=== PATIENT | male | born 1975 | race Caucasian/White ===

== ENCOUNTER 2021-09-05 19:40 | Emergency (ER) | payer MEDICAID ==
[~2021-09-05] VITALS: Ht 167.6 cm; Wt 63.5 kg
--- NOTE | 2021-09-05 20:00 | NUR ---
PT BIBSELF C/O BODY ACHES, CHILLS, "TROUBLE CATCHING BREATH", AND LACK OF APETITE "FOR A FEW DAYS". PT [id number] ATTACHED TO MONITOR AND POX. MD AT BEDSIDE. UPON ASSESSMENT, PT SKIN IS WARM AND DRY, AFEBRILE AT 98.7. PT GIVEN BLANKET AND CALL LIGHT WTIHIN REACH
--- NOTE | 2021-09-05 20:26 | NUR ---
BLOOD AND COVID SWAB SENT TO LAB
[2021-09-05] MEDS ORDERED: IV NS 0.9% 1,000 ML BAG IV ONE ×2 (20:30→21:00)
--- NOTE | 2021-09-05 20:30 | NUR ---
RAD AT BEDSIDE
[2021-09-05 20:41] LABS: BASOPHILS % (AUTO) 0.2 % (0.0-2.0); EOSINOPHILS % (AUTO) 0.1 % (0.0-6.0); HEMATOCRIT 42 % (39-51); HEMOGLOBIN 14.5 g/dL (13.5-17.5); LYMPHOCYTES # (AUTO) 1.5 K/uL (0.8-4.8); LYMPHOCYTES % (AUTO) 20.7 % (20.0-44.0); MEAN CORPUSCULAR HGB CONC 35 g/dl (31.0-36.0); MEAN CORPUSCULAR VOLUME 87 fL (80-96); MONOCYTES # (AUTO) 0.8 K/uL (0.1-1.30); MONOCYTES % (AUTO) 10.9 % (2.0-12.0); NEUTROPHILS # (AUTO) 4.8 K/uL (1.8-8.9); NEUTROPHILS % (AUTO) 68.1 % (43.0-81.0); PLATELET COUNT (AUTO) 157 K/uL (150-450); RED BLOOD CELL COUNT(AUTO) 4.76 MIL/uL (4.5-6.0); WHITE BLOOD COUNT (AUTO) 7.1 K/uL (4.3-11.0)
[2021-09-05 20:56] LABS: ALBUMIN 3.1 g/dL (3.4-5.0); BILIRUBIN,DIRECT 0.1 mg/dL (0.0-0.2); BILIRUBIN,TOTAL 0.3 mg/dL (0.2-1.0); CALCIUM, SERUM 8.4 mg/dL (8.5-10.1); CREATININE 1.1 mg/dL (0.6-1.3); POTASSIUM 3.9 mmol/L (3.5-5.1); TOTAL PROTEIN, SERUM 7.2 g/dL (6.4-8.2)
[2021-09-05] MEDS ORDERED: AZITHROMYCIN 500 MG in IV D5W 250 ML IV ONE (21:00)
[2021-09-05] MEDS ORDERED: CEFTRIAXONE 1GM BAG (ER ONLY) 50 ML IV ONE ×2 (21:00→21:06)
[2021-09-05] MEDS ORDERED: AZITHROMYCIN 500 MG VIAL ONE (21:06)
--- NOTE | 2021-09-05 21:10 | NUR ---
PT COVID POSITIVE. MADE AWARE
[2021-09-05] MEDS ORDERED: IBUP-1957 PO (21:13)
[2021-09-05] MEDS ORDERED: AMOX-430 PO (21:13)
[2021-09-05] MEDS ORDERED: MELA5TAB PO (21:13)
[2021-09-05 21:24] LABS: BILIRUBIN,URINE SMALL (NEGATIVE); COLOR,URINE YELLOW (YELLOW); LEUKOCYTE ESTERASE ,URINE NEGATIVE (NEGATIVE); NITRITE, URINE NEGATIVE (NEGATIVE); PROTEIN,URINE >=300 mg/dl (NEGATIVE); UGLUCOSE >=1000 mg/dL (NEGATIVE); UROBILINOGEN,URINE 0.2 EU/dL (0.2)
[2021-09-05 21:40] LABS: BACTERIA,URINE RARE /HPF (None Seen); RBC,URINE 21-50 /HPF (0-2); SQUAMOUS EPITHELIAL CELL,UR 0-2 /HPF (None Seen); WBC,URINE 0-2 /HPF (0-3)
--- NOTE | 2021-09-05 22:31 | NUR ---
Patient discharged to home in stable condition. Written and verbal after care instructions given. Patient verbalizes understanding of instruction. IV removed. Catheter intact and site benign. Pressure and 4x4 applied to site. No bleeding noted. PT ambulatory with a steady gait
[2021-09-05 22:39] VITALS: BP 133/85
== END 2021-09-05 22:31 | disposition home or self-care (01) ==
LOC: ER 19:54
DX: U07.1 COVID-19 (principal); J12.82 Pneumonia due to coronavirus disease 2019; I10 Essential (primary) hypertension; E11.65 Type 2 diabetes mellitus with hyperglycemia
CPT/HCPCS: 36415; 71045; 80048; 80076; 81001; 83605; 84145; 85025; 87040 ×2; 87426; 96361; 96365; 96367; 99284; C9803; J0456; J0696; J7030 ×2; J7060